=== PATIENT | male | born 1985 | race Two or more races ===

== ENCOUNTER 2016-09-03 21:10 | Emergency (ER) | payer OTHER ==
[~2016-09-03] VITALS: Ht 182.9 cm; Wt 90.7 kg
[2016-09-03 21:15] VITALS: BP 140/66
== END 2016-09-03 21:46 | disposition home or self-care (01) ==
LOC: ER 21:12
DX: S20.212A Contusion of left front wall of thorax, initial encounter (principal); W51.XXXA Accidental striking against or bumped into by another person, initial encounter; Y93.71 Activity, boxing; Y92.89 Other specified places as the place of occurrence of the external cause; Y99.8 Other external cause status
CPT/HCPCS: A4606; Z7610